=== PATIENT | female | born 1945 | race Caucasian/White ===

== ENCOUNTER 2017-11-14 13:02 | Outpatient (CLI) | payer MEDICARE, BC ==
[2017-11-14 14:03] LABS: #Eosinphils 0.1 thou/uL (0.0-0.7); #Lymphocytes 1.3 thou/uL (1.20-3.40); #Monocytes 0.5 thou/uL (0.11-0.59); %Basophils 0.4 % (0.0-1.0); %Eosinophils 1.9 % (0.0-10.0); %Lymphocytes 21.7 % (21.0-51.0); %Monocytes 8.3 % (0.0-10.0); %Neutrophils 67.7 % (42.0-75.0); Hemoglobin 13.4 g/dL (12.0-16.0); Mean Corpuscular HGB CONC 33.9 g/dL (32.0-36.0); Mean Corpuscular Hemoglobin 32.4 pg (27.0-31.0); Mean Corpuscular Volume 95.7 fL (78.0-98.0); Mean Platelet Volume 8.7 fL (7.4-10.4); Platelet Count 185 thou/uL (130-400); RBC Distribution Width 12.2 % (11.5-14.5); Red Blood Cell (RBC) Count 4.13 mill/uL (4.20-5.40)
[2017-11-14 14:09] LABS: INR-International Normal Ratio 1.3; PTT 28.3 SEC (22.9-36.1); Prothrombin Time 15.9 SEC (12.0-14.7)
[2017-11-14 14:40] LABS: Anion Gap 11 mmol/L (10-20); BUN (Urea Nitrogen) 19 mg/dL (9.8-20.1); Calc. Creatinine Clearance 0 mL/min (70-130); Calcium 9.8 mg/dL (7.8-10.44); Carbon Dioxide 33 mmol/L (23-31); Chloride 100 mmol/L (98-107); Estimated GFR-MDRD 65; Glucose 129 mg/dL (83-110); Potassium 3.4 mmol/L (3.5-5.1); Sodium 141 mmol/L (136-145)
--- NOTE | 2017-11-15 08:56 | EKG ---
Test Reason : Blood Pressure : / mmHG Vent. Rate : 073 BPM Atrial Rate : 073 BPM P-R Int : 148 ms QRS Dur : 094 ms QT Int : 400 ms P-R-T Axes : 029 -21 000 degrees QTc Int : 440 ms Sinus rhythm with Premature supraventricular complexes Incomplete right bundle branch block Possible Anterior infarct (cited on or before 23-MAY-2014) Nonspecific ST abnormality Abnormal ECG When compared with ECG of 23-MAY-2014 22:47, Sinus rhythm has replaced Atrial fibrillation Vent. rate has decreased BY 36 BPM Questionable change in initial forces of Anteroseptal leads Nonspecific T wave abnormality no longer evident in Lateral leads QT has lengthened Confirmed by DR. Omar ROSADO ([id number]) on 11/15/2017 8:56:22 AM Referred By: MAMIE Confirmed By:DR. Omar ROSADO
== END 2017-11-14 13:03 | disposition home or self-care (01) ==
LOC: LABBT 13:02
PROVIDERS: ATTEND Internal Medicine Cardiovascular Disease
DX: Z01.818 Encounter for other preprocedural examination (principal); I48.91 Unspecified atrial fibrillation
CPT/HCPCS: 80048; 85025; 85610; 85730; 93005; 93010

== ENCOUNTER 2017-11-15 11:56 | Observation (INO) | payer MEDICARE, BC ==
[2017-11-15] MEDS ORDERED: Heparin 10,000 UNITS/1 ML VIAL ONE ×2 (14:02→17:05)
[2017-11-15] MEDS ORDERED: Fentanyl 100 MCG/2 ML VIAL ONE ×2 (14:49→17:53)
[2017-11-15] MEDS ORDERED: Heparin 5,000 UNITS/ML VIAL ONE (14:52)
[2017-11-15] MEDS ORDERED: PROPOFOL 200 MG/20 ML VIAL ONE (14:52)
[2017-11-15] MEDS ORDERED: Lidocaine 1% PF 5 ML VIAL ONE (14:52)
[2017-11-15] MEDS ORDERED: Heparin 10,000 UNITS/ 10 ML VIAL ONE (14:52)
[2017-11-15] MEDS ORDERED: Glycopyrrolate 0.2 MG/ML 5 ML SYRINGE ONE (14:52)
[2017-11-15] MEDS ORDERED: PHENYLEPHRINE-NS 100 MCG/ML 10 ML SYRINGE ONE ×2 (14:52→15:37)
[2017-11-15] MEDS ORDERED: Ondansetron HCl/PF 4 MG/2 ML Vial ONE (14:52)
[2017-11-15] MEDS ORDERED: Phenylephrine HCL 10 MG/ML VIAL ONE (15:38)
[2017-11-15] MEDS ORDERED: Protamine Sulfate 50 MG/5 ML VIAL ONE (17:09)
[2017-11-15] MEDS ORDERED: Promethazine HCl 25 MG/ML VIAL SLOW IVP PRN (17:47)
[2017-11-15] MEDS ORDERED: Ondansetron HCl/PF 4 MG/2 ML Vial IVP PRN (17:47)
[2017-11-15] MEDS ORDERED: Promethazine HCl 25 MG/ML VIAL IM PRN (17:47)
[2017-11-15] MEDS ORDERED: Furosemide 40 MG/4 ML VIAL ONE (18:42)
[2017-11-15 19:46] VITALS: BMI 35.6
[2017-11-15] MEDS ORDERED: Calcium Carbonate 500 MG ChewTAB PO PRN (20:18)
--- NOTE | 2017-11-15 22:51 | OP ---
DATE OF PROCEDURE 11/15/2017 ELECTROPHYSIOLOGY PROCEDURE PROCEDURE: 1. Comprehensive EP testing, a 3D mapping ablation of atrial fibrillation. 2. Transseptal catheterization x2. 3. Intracardiac echocardiography. 4. Venography. CLINICAL INDICATION: Paroxysmal drug refractory atrial fibrillation. SURFACE GRINDER: Pino Marley M.D. ASA CLASSIFICATION: 3. ANESTHESIA: General endotracheal anesthesia per Anesthesiology. ADDITIONAL CARDIAC MEDICATIONS: None. ESTIMATED BLOOD LOSS: Less than 10 mL TOTAL FLUOROSCOPY TIME: 4.5 minutes. TOTAL HEPARIN GIVEN: 15,000 units. TOTAL PROTAMINE GIVEN: 40 mg. ACUTE COMPLICATIONS: None apparent. METHODS: After informed consent was obtained, the patient was taken to the EP lab in fasting state. Both groins were prepped and draped using ultrasound guidance. The right and left femoral veins wer e accessed and wires were inserted into the central venous system. The wires were then used to place an 11 [place] Citizen and 8 [place] Citizen sheath in the left groin, two 8-[place] Citizen sheath in the right groin, the 11-F rench sheath at quite a bit of resistance during placement and had to be predilated before the short sheath could be placed. An echo probe was placed in left groin advanced up to the IVC. There was so me resistance and appeared to be a fluid filled space in the retroperitoneal area. There was no ricardo ge in blood pressure for the patient and this was watched for almost 30 minutes. The other wires wer e used to place a short 8-[place] Citizen sheath and a venography was performed. This showed evidence of a pa rtial compression of the left iliac artery and in the retroperitoneal space with a significant collat eral suggesting chronicity of this event. With fluoroscopic guidance and ultrasound guidance, the re maining iliac was cannulated and long sheaths were placed through this area along with on the right i liac up to the IVC. A circular ablation catheter was used from the right groin to create a geometry of the right atrium and the coronary sinus. A 20-pole catheter was placed in left groin, advanced u p to the coronary sinus, the proximal end was along the saran terminalis. The patient was then anti coagulated and transseptal catheterization was performed using fluoroscopic and ultrasound guidance a long with 3D mapping. A 3D map was obtained, the left atrium and ablation was delivered completely i solating all four pulmonary veins and posterior left atrium. Ablation was delivered completely isola ting the coronary sinus as this also had evidence of nonvenous triggers. At the conclusion of proced ure, catheters were removed. Heparin was reversed. Sheaths were pulled. Hemostasis was achieved wi th collagen closure. RESULTS: 1. Baseline intervals, HV interval 59 milliseconds. 2. Atrial function. The patient was in atrial fibrillation; however, this converted spontaneously, complete isolation was performed of all four pulmonary veins and the posterior wall of the left atriu m. 3. Ablation details a total of 26 minutes 45 seconds were delivered with a [employer] Harris open, ir rigated ablation catheter to isolate the pulmonary veins and the coronary sinus and the posterior wal l of the left atrium. IMPRESSION: 1. Successful PVAI with posterior wall and CS isolation. 2. Evidence of a fluid filled cavity in the retroperitoneal space appears to be chronic, but probabl y warrants workup. RECOMMENDATION: 1. Continue with oral anticoagulation as clinically appropriate. 2. 23-hour observation.
[2017-11-16] MEDS ORDERED: Iopamidol 370 76% 100 ML VIAL ONE (07:21)
[2017-11-16] MEDS ORDERED: Famotidine 20 MG TAB PO SCH (09:00)
[2017-11-16] MEDS ORDERED: Furosemide 20 MG TAB PO SCH (09:00)
[2017-11-16] MEDS ORDERED: Multivitamin W/ Minerals 1 TAB PO SCH (09:00)
[2017-11-16] MEDS ORDERED: Ezetimibe 10 MG TAB PO SCH (09:00)
[2017-11-16] MEDS ORDERED: Rivaroxaban 10 MG TAB PO SCH (09:00)
[2017-11-16] MEDS ORDERED: Nebivolol HCl 5 MG TAB PO SCH (09:00)
[2017-11-16] MEDS ORDERED: Lisinopril/Hydrochlorothiazide 20/25 mg Tablet PO SCH (09:00)
[2017-11-16] MEDS ORDERED: Rosuvastatin 20 MG TAB PO SCH (09:00)
[2017-11-16] MEDS ORDERED: Furosemide 40 MG TAB PO PRN (12:07)
--- NOTE | 2017-11-16 14:43 | CT ---
ABDOMEN AND PELVIC CT SCAN WITH IV CONTRAST: HISTORY: A 72-year-old female with a history of compression of the left iliac vein secondary to a pelvic mass. There is some minimal pleural effusion and some pleural-based parenchymal changes in the right lowe r chest. The left lung base is clear. Possible very small hiatal hernia. Status post cholecystecto my without significant intrahepatic ductal dilatation. The pancreas, spleen, and adrenal glands are unremarkable. No evidence of renal calculus or acute obstruction. Large somewhat septated cystic pelvis mass measuring approximately 8.3 x 13.7 x 23.9 cm, somewhat more prominent on the right side. The distal IVC is somewhat flattened. Additionally, the distal left iliac vein is minimally flatte suzanne, but there is no evidence for intraluminal thrombus. No evidence of venous occlusion. IMPRESSION: Large somewhat septated cystic pelvic and lower abdominal mass. This results in some compressive malissa nges on the distal inferior vena cava which is thinned at its origin as well as minimal thinning of t he left iliac vein as it crosses between the spine and the common iliac arteries, but no evidence for intraluminal thrombus or intraluminal clot or obstruction. POS: ARLIN
[2017-11-16 15:50] VITALS: BP 101/63; TEMP 98.8
--- NOTE | 2017-11-16 16:05 | EKG ---
Test Reason : Blood Pressure : / mmHG Vent. Rate : 073 BPM Atrial Rate : 073 BPM P-R Int : 138 ms QRS Dur : 090 ms QT Int : 434 ms P-R-T Axes : 049 -01 004 degrees QTc Int : 478 ms Normal sinus rhythm Normal ECG When compared with ECG of 14-NOV-2017 13:31, Premature supraventricular complexes are no longer Present Borderline criteria for Anterior infarct are no longer Present Confirmed by DR. Omar ROSADO ([id number]) on 11/16/2017 4:05:17 PM Referred By: MAMIE Confirmed By:DR. Omar ROSADO
[2017-11-16] MEDS ORDERED: Sucralfate 1 GM TAB PO SCH (17:00)
--- NOTE | 2017-11-16 17:06 | PDOC.EVN ---
Event Note - Event Note Event Note: Phone call to OBGYN from Dr Rivera: I received a call from Dr Rivera just now regarding this patient. She had a cardiac ablation for AFib and is now on Xarelto. She was found to have a 24cm incidential ovarian mass as part of this workup. Dr Rivera was called, who called me, to [facility] outpatient obgyn specialist follow up. She was found to have a 24cm septated cyctic pelvic mass on sono/CT. I will fax a referral to [facility] ([facility]). She has a HX of prior unilateral oophorectomy and hyst years ago. Patient not seen by POLICE BOOKING OFFICER. Phone call referral only.
--- NOTE | 2017-11-16 20:10 | CON ---
DATE OF CONSULTATION: 11/16/2017 CHIEF COMPLAINT: Large pelvic cyst. HISTORY OF PRESENT ILLNESS: This is a 72-year-old female who at age 28 had her right ovary and uteru s removed for what was described as a massive cyst. Yesterday, she had a cardiac ablation and during the ultrasound portion of this, the instrument lens grinder saw a cystic structure on ultrasound. A CT scan wa s obtained today showing a very large pelvic cyst, primarily on the left side causing some compressio n of the vena cava. The patient denies any abdominal pain. She denies leg swelling, but she says sh joaquin is on diuretics. She has not seen a perforator typist for over almost 30 years. PAST MEDICAL HISTORY: Significant for atrial fibrillation, recent ablation, and hypertension. PAST SURGICAL HISTORY: Had a hysterectomy, open cholecystectomy, lumpectomy, colonoscopy, right ankl e surgery, bilateral cataracts and the hysterectomy and cystectomy. MEDICATIONS: Include rosuvastatin, Xarelto, multivitamins, lisinopril, Lasix, Pepcid, Zetia, Bystoli c, Carafate, K-Dur, Protonix, and Lasix. ALLERGIES: She has allergies to VALIUM. SOCIAL HISTORY: Denies tobacco or alcohol use. PHYSICAL EXAMINATION: VITAL SIGNS: Temperature 98.8, pulse 92, blood pressure is 103/51. GENERAL: She is an obese female in no apparent distress. HEENT: Unremarkable. LUNGS: Clear. HEART: Regular rate and rhythm. ABDOMEN: Again, obese, but there is a large palpable mass that is nontender on the left pelvic area probably about 20 cm in diameter. EXTREMITIES: I do not see any significant pedal edema. LABORATORY AND X-RAY FINDINGS: White count 6, H&H 13 and 39, platelet count 185. Her PT is 15, INR 1.3. Her electrolytes, potassium 3.4, CO2 of 33, glucose 129. CT scan shows this 24 x 14 x 8 cm mul ti or septated cystic pelvic lower abdominal mass with compressive changes on the lower and inferior vena cava, but no thrombus. ASSESSMENT: Large pelvic cyst, likely ovarian. PLAN: The patient really needs evaluation by Gynecology as the size puts her at risk for this being an ovarian cancer.
--- NOTE | 2017-11-16 20:44 | DIS ---
DATE OF ADMISSION: 11/15/2017 DATE OF DISCHARGE: 11/16/2017 Dictated as scribe for Dr. Dc Vazquez. REASON FOR ADMISSION: Drug refractory persistent atrial fibrillation with ablation. ADMITTING PHYSICIAN: Pino Marley MD PROCEDURES PERFORMED: 1. Comprehensive EP testing, mapping, and ablation of atrial fibrillation as well as venography. A successful PVI with posterior wall and coronary sinus isolation as well as evidence of a fluid-filled cavity that was found in the retroperitoneal space, which appears to be chronic, but underwent addit ional imaging for workup. 2. CT of the abdomen and pelvis with contrast. COMPLICATIONS: None. HISTORY OF PRESENT ILLNESS: Ms. Gutierrez is a very pleasant 72-year-old woman with a history of drug re fractory persistent atrial fibrillation, who was admitted the day prior for an elective atrial fibril lation ablation. This was performed the day prior and she received a total of 26 minutes 45 seconds of RF energy delivered successfully terminating her atrial fibrillation. She has been maintaining si nus rhythm since the ablation and has had an uneventful postoperative recovery thus far. That being said, while gaining access, it was found that she had a large fluid-filled cavity in the retroperiton eal space. The morning after her procedure, a CT of the abdomen and pelvis with contrast was ordered , which revealed a 24-cm cystic ovarian mass. The patient has had a hysterectomy and right oophorect george at age 31, but the left ovary had remained in place to prevent early menopause. This was evaluat ed by CV Surgery and was then also referred to Gynecology. She has a followup appointment with Gynec ology for further evaluation and management of her cyst. Regarding her postoperative recovery, she is maintaining sinus rhythm. Her vital signs have been sta ble. She does not show any signs of congestive heart failure or fluid overload post-ablation. She h as been ambulatory, tolerating p.o. intake, and voiding normally. She does not have any chest pain o r dyspnea on exertion. She shows no signs of pericardial effusion or tamponade. The groin sites are stable and bilateral access points were closed with Vascade collagen closure devices. The patient i s stable and ready for discharge. DISCHARGE MEDICATIONS: We will continue her home medications with a few alteration. Discharge list includes Crestor 40 mg p.o. daily, Xarelto 20 mg p.o. daily, multivitamin p.o. daily, lisinopril/hydr ochlorothiazide 20-25 p.o. daily, Lasix 20 mg p.o. daily, Pepcid AC 10 mg daily, Zetia 10 mg daily, T ums as needed, Bystolic 10 mg daily, Carafate prescription 1 gram p.o. before meals and at bedtime x2 weeks, potassium chloride 20 mEq p.o. one tab p.r.n. if taking Lasix prescription, Protonix 40 mg p. o. daily x1 month prescription provided, and Lasix 40 mg p.o. p.r.n. increased shortness of breath or edema prescription provided. DISCHARGE INSTRUCTIONS: No lifting more than 25 pounds or soaking baths for 1 week's time. Then, sh e may resume activity gradually and as tolerated. She will follow up Clinic in [place] in 4-6 we eks and already has an appointment scheduled for this. She has continued taking her Xarelto without interruption, especially in postoperative recovery time. She did not have an extensive ablation and if she undergoes further workup for this ovarian cyst, she may need to interrupt her anticoagulation around 1 month's time, which has been discussed with Dr. Marley for more possible gynecologic surgery and management of the cyst. She will be mailed an event monitor in the near future to use in her po stoperative recovery and monitoring for recurrent atrial fibrillation. She is to stop her Multaq, wh ich we will consider re-initiating if early recurrence is seen. CONDITION ON DISCHARGE: Stable without postoperative complications, chronic ovarian cyst discovered and undergoing further evaluation by Gynecology in the near future. The patient has LOCOMOTIVE INSPECTOR appointment scheduled.
--- NOTE | 2017-11-16 22:57 | CON ---
DATE OF CONSULTATION: 11/16/2017 HISTORY OF PRESENT ILLNESS: Christy Gutierrez is a 72-year-old white female that I have followed since 11/11. At that time, she presented feeling her heart beat rapidly and denied any chest discomfort, humberto rtness of breath, orthopnea or PND. She had one previous episode, but did not seek medical attention in the summer of 2007. She had been on metoprolol extended release, but stopped that in the summer 2007 because her blood pressure was low. When she came in with atrial fibrillation, she was treated with intravenous Cardizem and converted to sinus rhythm. Two weeks later, she was admitted with recurrence of the atrial fibrillation. She was given intraven ous Cardizem. She converted to sinus rhythm and was placed on p.o. Cardizem in addition to metoprolo l. She underwent Cardiolite treadmill testing, exercised for 7 minutes. She had no chest pain or ST segment changes. Cardiolite revealed no evidence of ischemia. After that, she would continue to have intermittent short-lived episodes. She has complained of tire dness with the metoprolol and was switched to Bystolic for a period of time. However, she thought sh e had more episodes of atrial fibrillation with Bystolic. In 12/2011, she awoke with a feeling of her heart beating very rapidly came to the emergency room and was in atrial fibrillation with rate of 110-120. She was placed on Cardizem drip. She was placed o n Xarelto as well as Multaq. She converted to sinus rhythm. Since her admission, she has continued to be intermittently followed in the office. She would contin ue to have episodes of atrial fibrillation, sometimes lasting up to 24 hours. She was then seen on 0 10/05/2017. She was having more frequent episodes of atrial fibrillation, sometimes lasting over 7 da ys. She stated that the heart rate was never over 100. With increased episodes, she was referred to Electrophysiology. Yesterday, she underwent radiofrequency ablation. It was noted that there seeme d to be compression of the left iliac vein and abdominal CT has been performed. She denies having any abdominal pain, history of diverticulosis or diverticulitis, nausea, vomiting o r diarrhea. She does state that she had large ovarian cyst and underwent hysterectomy and right ooph orectomy; however, the left ovary remained. PAST MEDICAL HISTORY: Diabetes, hyperlipidemia, hypertension, atrial fibrillation, GERD, history of diastolic CHF. OPERATIONS: Hysterectomy, right oophorectomy, right ankle surgery, cataract surgery, cholecystectomy . MEDICATIONS: Tums 2 to 3 tablets b.i.d. p.r.n., Zetia 10 daily, Pepcid-AC 10 mg daily, furosemide 40 mg p.r.n., furosemide 20 mg daily, lisinopril/hydrochlorothiazide 20/25 q.a.m., Centrum Silver, Byst olic 10 mg daily, Protonix 40 daily, KCl 20 mEq q.a.m., Xarelto 20 mg daily, Crestor 40 daily, and Ca rafate 1 gram a.c. and at bedtime. ALLERGIES: VALIUM. SOCIAL HISTORY: She does not smoke. She occasionally drinks wine. She is a retired school nurse. FAMILY HISTORY: Father of myocardial infarction at age 57. Sister had a stroke at age 69. REVIEW OF SYSTEMS: Twelve-point review of systems otherwise unremarkable. PHYSICAL EXAMINATION: VITAL SIGNS: Blood pressure 103/51, pulse of 81, sinus rhythm on the monitor. HEENT: PERRL. NECK: Supple. LUNGS: Chest is clear. CARDIAC: S1 and S2 are normal, without any S3, S4 or murmurs. ABDOMEN: Normal bowel sounds, without tenderness. No definite masses were felt. EXTREMITIES: Revealed no clubbing, cyanosis or edema. NEUROLOGIC: Grossly intact. LABORATORY DATA: EKG reveals normal sinus rhythm with incomplete left bundle branch block. CBC is u nremarkable. Sodium 141, potassium 3.4, chloride 100, carbon dioxide 33, BUN 19, creatinine 0.86. A bdominal and pelvic CT revealed a large somewhat septated cystic pelvic and lower abdominal mass 8.3 x 13.7 x 23.9 cm somewhat more prominent on the right side. There are some compressions changes in d istal inferior vena cava as well as minimal pain in the left iliac vein. There is no evidence of int ramural thrombus or obstruction. IMPRESSION: 1. Large cystic abdominal - pelvic mass. 2. History of ovarian cyst with right oophorectomy in the past. 3. Paroxysmal atrial fibrillation, status post ablation yesterday. 4. Hypertension. 5. Diabetes. 6. Hyperlipidemia. 7. Moderate to severe mitral regurgitation. 8. History of right breast cancer. 9. Positive family history. PLAN: Surgical consultation will be obtained for further evaluation of this mass. I have been in co ntact with Dr. Marley and he felt that if it was critical that anticoagulation could be held now for further evaluation or operation. Otherwise, consideration should be given to continue anticoagulatio n for a month.
[2017-11-17] MEDS ORDERED: Potassium Chloride 20 MEQ TAB PO SCH ×2 (08:00→09:00)
== END 2017-11-16 17:43 | disposition home or self-care (01) ==
LOC: SDC 11:56 → 2SW 17:46 → SDC 20:58
PROVIDERS: ADMIT Internal Medicine Cardiovascular Disease; ATTEND Internal Medicine Cardiovascular Disease
PROC: 02583ZZ Destruction of Conduction Mechanism, Percutaneous Approach (ICD-10-PCS; principal; 2017-11-15)
PROC: 02K83ZZ Map Conduction Mechanism, Percutaneous Approach (ICD-10-PCS; 2017-11-15)
PROC: B246ZZZ Ultrasonography of Right and Left Heart (ICD-10-PCS; 2017-11-15)
DX: I48.0 Paroxysmal atrial fibrillation (principal); I11.0 Hypertensive heart disease with heart failure; I50.30 Unspecified diastolic (congestive) heart failure; I34.0 Nonrheumatic mitral (valve) insufficiency; E11.9 Type 2 diabetes mellitus without complications; E78.5 Hyperlipidemia, unspecified; K21.9 Gastro-esophageal reflux disease without esophagitis; R19.00 Intra-abdominal and pelvic swelling, mass and lump, unspecified site; Z79.02 Long term (current) use of antithrombotics/antiplatelets; Z79.899 Other long term (current) drug therapy; Z88.8 Allergy status to other drugs, medicaments and biological substances; Z85.3 Personal history of malignant neoplasm of breast
CPT/HCPCS: 36005; 74177; 75820; 76942; 85347 ×2; 93005; 93613; 93622; 93656; 93662; 94760; 96374; C1731; C1732 ×3; C1759; C1769; G0378; J1644; J1940; J2001; J2370; J2405; J2704; J2720; J3010

== ENCOUNTER 2017-11-28 13:46 | Outpatient (CLI) | payer MEDICARE, BC | END 2017-11-28 13:47 | disposition home or self-care (01) | LOC: BICMAMMO 13:46 | PROVIDERS: ATTEND Internal Medicine Hematology & Oncology | DX: Z08 Encounter for follow-up examination after completed treatment for malignant neoplasm (principal); R92.2 Inconclusive mammogram; R92.1 Mammographic calcification found on diagnostic imaging of breast; Z85.3 Personal history of malignant neoplasm of breast; Z85.828 Personal history of other malignant neoplasm of skin | CPT/HCPCS: 76642; 77066; G0279 ==

== ENCOUNTER 2018-01-03 14:31 | Outpatient (CLI) | payer MEDICARE, BC ==
[2018-01-03 15:57] LABS: Hemoglobin 12.8 g/dL (12.0-16.0); Mean Corpuscular Hemoglobin 31.1 pg (27.0-31.0); Mean Corpuscular Volume 94.5 fL (78.0-98.0); Mean Platelet Volume 8.2 fL (7.4-10.4); Platelet Count 195 thou/uL (130-400); RBC Distribution Width 12.1 % (11.5-14.5); Red Blood Cell (RBC) Count 4.12 mill/uL (4.20-5.40)
[2018-01-03 16:18] LABS: Anion Gap 9 mmol/L (10-20); BUN (Urea Nitrogen) 16 mg/dL (9.8-20.1); Calc. Creatinine Clearance 0 mL/min (70-130); Calcium 10.2 mg/dL (7.8-10.44); Carbon Dioxide 33 mmol/L (23-31); Chloride 100 mmol/L (98-107); Estimated GFR-MDRD 60; Glucose 114 mg/dL (83-110); Potassium 3.4 mmol/L (3.5-5.1); Sodium 139 mmol/L (136-145)
== END 2018-01-03 14:32 | disposition home or self-care (01) ==
LOC: LABBT 14:31
PROVIDERS: ATTEND Obstetrics & Gynecology
DX: Z01.812 Encounter for preprocedural laboratory examination (principal); N83.209 Unspecified ovarian cyst, unspecified side
CPT/HCPCS: 80048; 85027; 86850; 86900; 86901

== ENCOUNTER 2018-01-07 06:55 | Inpatient (IN) | payer MEDICARE, BC ==
[2018-01-03 14:54] VITALS: BMI 36.6
--- NOTE | 2018-01-03 23:11 | HP ---
She is scheduled for surgery on 01/07/2018. HISTORY OF PRESENT ILLNESS: Ms. Gutierrez is a 72-year-old white female with prior hysterectomy and yonny lidya of the right ovary many years ago, who had undergone a recent cardiac ablation procedure for clinical program consultant brian atrial fibrillation. During the procedure, the plastics spreading machine operator noted difficulty with passing of fem oral vein catheter and therefore afterwards a CT scan was obtained. A very large 23.9 x 13.7 x 8.3 c m cystic pelvic mass with some septation were seen most likely from her remnant ovary. There was no ascites, no omental caking, and no adenopathy seen. Patient has noted increasing abdominal girth and also early satiety and some constipation. PAST MEDICAL HISTORY: As noted, chronic hypertension, atrial fibrillation, status post successful ab lation, also history of stage I estrogen receptor positive breast cancer in [address] Taina Hill. PAST SURGICAL HISTORY: Noted hysterectomy and oophorectomy in her 30s and lumpectomy right breast, o pen cholecystectomy, ankle surgery, bilateral cataracts replacements and as noted recent cardiac abla tion procedure. ALLERGIES: She has no known drug allergies. CURRENT MEDICATIONS: Bystolic 10 mg daily, ezetimibe 10 mg daily, furosemide 20 mg daily, lisinopril /hydrochlorothiazide 20/25 mg tablet daily, metformin 500 mg b.i.d., Protonix 40 mg daily, potassium chloride ER 20 mEq daily, rosuvastatin 40 mg tablet daily, sucralfate 1 gram tablet daily, and Xarelt o 20 mg daily. Patient is discontinuing the Xarelto 72 hours prior to surgery. FAMILY HISTORY: Noncontributory. PHYSICAL EXAMINATION: VITAL SIGNS: Patient's height is 5 feet 2 inches, weight 200 pounds. BMI 36.6, blood pressure 114/7 2, pulse is 78 and regular, respiratory rate 18, O2 saturation 98%. GENERAL: She is well-developed, well-nourished, white female, slightly obese. NECK: Supple, no thyromegaly, JVD, or masses noted. CHEST: Clear to auscultation. HEART: Regular rate and rhythm. S1, S2 heart sounds were no murmurs, rubs, or gallops. ABDOMEN: Soft, it is distended with a large pelvic mass appears to be 4 to 5 cm above the umbilicus, it is nontender. PELVIC: Vulva and vagina had no lesions. Vaginal cuff intact. Cervix was surgically absent. Uteru s surgically absent, palpable 24-week size pelvic mass. Additional lab for the adnexal mass showed a normal CA-125 level of 25.8. ASSESSMENT: This is a 72-year-old white female, prior hysterectomy, oophorectomy with 24 cm cystic a dnexal mass with minimal septations. Normal CA-125 level of 25. Patient has had a history of chroni c atrial fibrillation with such successful cardiac ablation procedure and now is in normal sinus rhyt hm. She has had cardiac clearance with her plastics spreading machine operator, Dr. Branch with a normal myocardial perfu paulie study recently with an ejection fraction of 61%. She also has history of stage I, estrogen rece ptor positive breast cancer and is currently without evidence of disease recurrence. PLAN: To proceed with exploratory laparotomy with removal of the remaining adnexal cyst. She is to discontinue the Xarelto 72 hours prior to surgery. Risks and benefits of procedure discussed in belem rodriguez. She is set for surgery on 01/07/2018.
[2018-01-07] MEDS ORDERED: CEFAZOLIN 2 GM/50 ML BAG ONE (07:45)
[2018-01-07] MEDS ORDERED: Ropivacaine HCl/PF 750 ML in Premix Bag 1 BAG NERVE BLCK SCH (07:45)
[2018-01-07] MEDS ORDERED: Fentanyl 250 MCG/5 ML VIAL ONE (08:43)
[2018-01-07] MEDS ORDERED: Bupivacaine PF 0.5% 30 ML VIAL ONE (09:17)
[2018-01-07] MEDS ORDERED: Promethazine HCl 25 MG/ML VIAL IM PRN (10:09)
[2018-01-07] MEDS ORDERED: Promethazine HCl 25 MG/ML VIAL SLOW IVP PRN (10:09)
[2018-01-07] MEDS ORDERED: Ondansetron HCl/PF 4 MG/2 ML Vial IVP PRN (10:09)
[2018-01-07] MEDS ORDERED: Fentanyl 100 MCG/2 ML VIAL ONE (10:17)
[2018-01-07] MEDS ORDERED: Promethazine HCl 25 MG/ML VIAL ONE (11:04)
--- NOTE | 2018-01-07 12:14 | OP ---
DATE OF PROCEDURE: 01/07/2018 PREOPERATIVE DIAGNOSES: This is a 72-year-old white female with history of previous hysterectomy and RSO with large 24 cm left adnexal cyst. POSTOPERATIVE DIAGNOSES: This is a 72-year-old white female with history of previous hysterectomy an d RSO with large 24 cm left adnexal cyst. PROCEDURE PERFORMED: Exploratory laparotomy with left salpingo-oophorectomy. SURGEON: Ally Pascual M.D. OPTICAL DESIGN ENGINEER: Ricardo Beckett D.O. ANESTHESIA: General endotracheal. ESTIMATED BLOOD LOSS: Less than 50 mL. COMPLICATIONS: None. COUNTS: Correct x2. ANTIBIOTICS: Two grams Ancef pumping station engineer to the OR. FINDINGS: 1. Very large bilobed cystic adnexal mass approximately 24 x 20 cm with smooth capsule noted. 2. Normal appearing omental surfaces and peritoneal cavity of the abdomen with normal appearing alexx l and colon. DISPOSITION: To the recovery room stable. DESCRIPTION OF OPERATIVE PROCEDURE: The patient previously received informed consent in regards to tanisha butler. She is taken back to the operating room where she received a general endotracheal anesthetic agent without complications. She was placed in supine position and prepped and draped in usual ster ile fashion. A Aguilar catheter was placed. A vertical midline incision was made in the abdomen. Thi s was carried around to the left side of the umbilicus back towards the midline to accommodate room f or removal of the large cystic structure. This fascia was nicked in the midline. Fascial incision w as extended superiorly and inferiorly. The rectus muscle bellies were divided in midline. The perit mills cavity was entered. Cytologic peritoneal washings were then obtained at this time. The incisi on was then extended to allow for removal of the large cyst which was edged out intact. The pedicle base of the adnexal mass was identified and the ureter was palpated to be well below the anticipated excision site. Two Meka clamps were placed overlapping underneath the large cyst. Fraser scissors w ere then utilized to cut the pedicle distal to this and the cyst remained intact. A Florinef tie on the most distal clamp was placed securing the pedicle and the clamp was removed and then a free tie o f 0 Vicryl was placed under the most proximal clamp and this was cinched down, an additional Florinef suture was then placed securing the pedicle site with hemostasis being confirmed. The pelvis again was irrigated and suctioned. The peritoneal cavity was then explored with the previously mentioned f indings. The edges of the peritoneum were then reapproximated with a running 0 Vicryl suture. The u pper edge of the fascia was then grasped with Sol clamps in a double looped #1 PDS suture was then initiated the closure of the superior fascial edge. Several throws were placed and then the ON-Q pu mp double lumen catheters were placed with the trocars sleeves passing under the fascia down to the i nferior edge of the subfascial region of the incision. The fascia was then continued to close the ed ges down to the inferior edge and the fascial suture was tied. The catheters of the ON-Q pump were t hen passed through the catheter sleeves and these were then removed intact. The subcutaneous tissue was then closed with 3-0 plain gut suture, and then tiki were utilized for skin closure. Hemostas is was confirmed. The catheters for the ropivacaine On-Q pump were then flushed with Marcaine. The patient was awakened from anesthesia and transferred to the recovery room in stable condition.
[2018-01-07] MEDS ORDERED: traMADol HCl 50 MG TAB PO PRN (13:17)
[2018-01-07] MEDS ORDERED: Bisacodyl 10 MG SUPP PR PRN (13:17)
[2018-01-07] MEDS ORDERED: Zolpidem Tartrate 5 MG TAB PO PRN (13:17)
[2018-01-07] MEDS ORDERED: diphenhydrAMINE 25 MG CAP PO PRN (13:17)
[2018-01-07] MEDS ORDERED: Simethicone Chewable 80 MG TAB PO PRN (13:17)
[2018-01-07] MEDS ORDERED: Acetaminophen 325 MG TAB PO PRN (13:17)
[2018-01-07] MEDS: Lactated Ringer's 1,000 ML IV SCH ×3 (14:45→23:19)
[2018-01-07] MEDS ORDERED: Dexamethasone 20 MG/5 ML VIAL ONE (17:16)
[2018-01-07] MEDS ORDERED: Ondansetron PF 4 MG/2 ML Vial ONE (17:16)
[2018-01-07] MEDS ORDERED: PROPOFOL 200 MG/20 ML VIAL ONE (17:16)
[2018-01-07] MEDS ORDERED: Glycopyrrolate 0.2 MG/ML 5 ML SYRINGE ONE (17:16)
[2018-01-07] MEDS ORDERED: Lidocaine 1% PF 5 ML VIAL ONE (17:16)
[2018-01-07] MEDS: Dronedarone HCl 400 MG TAB PO SCH (17:39)
[2018-01-07] MEDS: Ketorolac Tromethamine 30 MG/ML VIAL IVP SCH ×2 (17:49→23:18)
[2018-01-07] MEDS: Furosemide 20 MG TAB PO SCH (17:49)
[2018-01-07] MEDS: Ibuprofen 800 MG TAB PO SCH (18:10)
[2018-01-07] MEDS ORDERED: Ketorolac Tromethamine 30 MG/ML VIAL ONE (20:42)
[2018-01-07] MEDS: Rosuvastatin 20 MG TAB PO SCH (21:10)
[2018-01-08 05:42] LABS: Hemoglobin 10.2 g/dL (12.0-16.0); Mean Corpuscular HGB CONC 32.3 g/dL (32.0-36.0); Mean Corpuscular Hemoglobin 30.6 pg (27.0-31.0); Mean Corpuscular Volume 94.5 fL (78.0-98.0); Mean Platelet Volume 8.3 fL (7.4-10.4); Platelet Count 151 thou/uL (130-400); RBC Distribution Width 12.1 % (11.5-14.5); Red Blood Cell (RBC) Count 3.35 mill/uL (4.20-5.40); White Blood Cell (WBC) Count 10.7 thou/uL (4.8-10.8)
[2018-01-08] MEDS: Ketorolac Tromethamine 30 MG/ML VIAL IVP SCH ×3 (06:09→18:17)
[2018-01-08] MEDS ORDERED: Furosemide 20 MG TAB PO SCH (09:00)
[2018-01-08] MEDS: Rivaroxaban 10 MG TAB PO SCH (09:56)
[2018-01-08] MEDS: Ezetimibe 10 MG TAB PO SCH (09:56)
[2018-01-08] MEDS: Nebivolol HCl 5 MG TAB PO SCH ×2 (09:56→11:38)
[2018-01-08] MEDS: Ibuprofen 800 MG TAB PO SCH ×3 (09:57→21:44)
[2018-01-08] MEDS: Lisinopril/Hydrochlorothiazide 20/25 mg Tablet PO SCH (09:57)
[2018-01-08] MEDS: Dronedarone HCl 400 MG TAB PO SCH ×2 (11:38→18:16)
[2018-01-08] MEDS: Lactated Ringer's 1,000 ML IV SCH ×2 (11:40→21:22)
[2018-01-08] MEDS: traMADol HCl 50 MG TAB PO PRN ×2 (14:37→20:07)
[2018-01-08] MEDS ORDERED: Baclofen 10 MG TAB PO PRN (17:02)
[2018-01-08] MEDS ORDERED: Baclofen 10 MG TAB PO SCH (17:15)
[2018-01-08] MEDS: Furosemide 20 MG TAB PO SCH (21:44)
[2018-01-08] MEDS: Rosuvastatin 20 MG TAB PO SCH (22:21)
[2018-01-09] MEDS: Ketorolac Tromethamine 30 MG/ML VIAL IVP SCH (00:31)
[2018-01-09] MEDS: Lactated Ringer's 1,000 ML IV SCH (03:39)
[2018-01-09 07:32] VITALS: BP 155/91; TEMP 98.6
[2018-01-09] MEDS: Dronedarone HCl 400 MG TAB PO SCH (08:34)
[2018-01-09] MEDS: Ezetimibe 10 MG TAB PO SCH (08:34)
[2018-01-09] MEDS: Lisinopril/Hydrochlorothiazide 20/25 mg Tablet PO SCH (08:34)
[2018-01-09] MEDS: Rivaroxaban 10 MG TAB PO SCH (08:35)
[2018-01-09] MEDS: Nebivolol HCl 5 MG TAB PO SCH (08:35)
[2018-01-09] MEDS ORDERED: Ibuprofen 800 MG TAB PO SCH (09:00)
--- NOTE | 2018-01-09 12:20 | DIS ---
DATE OF ADMISSION: 01/07/2018 DATE OF DISCHARGE: 01/09/2018 DIAGNOSES: 1. 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 2. History of chronic hypertension and atrial fibrillation with ablation. 3. Also, history of estrogen receptor positive breast cancer, currently without evidence of disease SUMMARY OF HOSPITAL COURSE: The patient is a 72-year-old white female who was found to have a large pelvic mass after undergoing a cardiac ablation in her pelvis. This was found to be a large 24 cm le ft adnexal mass. She underwent exploratory laparotomy with left salpingo-oophorectomy on 01/07/2018. Pathology confirmed this to be a benign mucinous cystadenoma of the left ovary. She has had a prev ious hysterectomy and RSO in the past. Postoperatively, the patient has done well. Her vital signs have remained stable. Hematocrit was 31.6% postop day #1. She was ambulating and voiding without di fficulty and tolerating diet on postop day #1. 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 On the morning of postop day #2, she is doing well and was ready to go home. Her v ital signs are stable, tolerating diet, voiding and ambulating without difficulty. She has a followu p postop day 10 for staple removal and incision check in 6 weeks postop. She has resumed her Xarelto on postop day #1 for her atrial fibrillation prophylaxis and her other maintenance meds for blood pr essure control.
== END 2018-01-09 10:14 | disposition home or self-care (01) | DRG 743 ==
LOC: SDC 06:55 → 3SE 10:04
PROVIDERS: ADMIT Obstetrics & Gynecology; ATTEND Obstetrics & Gynecology
PROC: 0UT60ZZ Resection of Left Fallopian Tube, Open Approach (ICD-10-PCS; principal; 2018-01-07)
PROC: 0UT10ZZ Resection of Left Ovary, Open Approach (ICD-10-PCS; 2018-01-07)
DX: N83.202 Unspecified ovarian cyst, left side (principal); I10 Essential (primary) hypertension; I48.91 Unspecified atrial fibrillation; Z79.01 Long term (current) use of anticoagulants; Z85.3 Personal history of malignant neoplasm of breast; Z90.710 Acquired absence of both cervix and uterus
CPT/HCPCS: 36415; 85027; 87070; 87205; 88112; 88307; J1100; J1885; J2001; J2405; J2550; J2704; J2795; J3010; S0020

== ENCOUNTER 2018-06-24 00:09 | Outpatient (CLI) | payer MEDICARE, BC ==
[2018-06-24 15:55] LABS: Hemoglobin 13.2 g/dL (12.0-16.0); Mean Corpuscular HGB CONC 32.8 g/dL (32.0-36.0); Mean Corpuscular Hemoglobin 31.1 pg (27.0-31.0); Mean Corpuscular Volume 94.8 fL (78.0-98.0); Mean Platelet Volume 8.8 fL (7.4-10.4); Platelet Count 187 thou/uL (130-400); RBC Distribution Width 12.4 % (11.5-14.5); Red Blood Cell (RBC) Count 4.23 mill/uL (4.20-5.40); White Blood Cell (WBC) Count 8.4 thou/uL (4.8-10.8)
[2018-06-24 16:05] LABS: INR-International Normal Ratio 1.3; PTT 26.3 SEC (22.9-36.1); Prothrombin Time 16.1 SEC (12.0-14.7)
[2018-06-24 16:14] LABS: Anion Gap 12 mmol/L (10-20); BUN (Urea Nitrogen) 23 mg/dL (9.8-20.1); Calc. Creatinine Clearance 0 mL/min (70-130); Carbon Dioxide 34 mmol/L (23-31); Chloride 98 mmol/L (98-107); Estimated GFR-MDRD 55; Glucose 99 mg/dL (83-110); Potassium 3.3 mmol/L (3.5-5.1); Sodium 141 mmol/L (136-145)
== END 2018-06-24 00:10 | disposition home or self-care (01) ==
LOC: LABBT 00:09
PROVIDERS: ATTEND Specialist
DX: Z01.818 Encounter for other preprocedural examination (principal); I48.91 Unspecified atrial fibrillation
CPT/HCPCS: 80048; 85027; 85610; 85730; 93005; 93010

== ENCOUNTER 2018-06-25 08:59 | Observation (INO) | payer MEDICARE, BC ==
[2018-06-24 14:58] VITALS: BMI 34.7
[2018-06-25] MEDS ORDERED: Heparin 10,000 UNITS/1 ML VIAL ONE ×2 (09:05→12:20)
[2018-06-25] MEDS ORDERED: Fentanyl 100 MCG/2 ML VIAL ONE (11:42)
[2018-06-25] MEDS ORDERED: Isoproterenol 0.2 MG/1 ML AMP ONE (12:32)
[2018-06-25] MEDS ORDERED: Protamine Sulfate 50 MG/5 ML VIAL ONE ×2 (13:10→13:27)
[2018-06-25] MEDS ORDERED: Promethazine HCl 25 MG/ML VIAL SLOW IVP PRN (13:33)
[2018-06-25] MEDS ORDERED: Meperidine HCl/PF 25 MG/ML VIAL SLOW IVP PRN (13:33)
[2018-06-25] MEDS ORDERED: Promethazine HCl 25 MG/ML VIAL IM PRN (13:33)
[2018-06-25] MEDS ORDERED: Rocuronium Bromide 10 MG/ML (10ML VIAL) ONE (13:57)
[2018-06-25] MEDS ORDERED: Lidocaine 1% PF 5 ML VIAL ONE (13:57)
[2018-06-25] MEDS ORDERED: PROPOFOL 200 MG/20 ML VIAL ONE (13:57)
[2018-06-25] MEDS ORDERED: Glycopyrrolate 0.2 MG/ML 5 ML SYRINGE ONE (13:57)
[2018-06-25] MEDS ORDERED: diphenhydrAMINE 50 MG/ML VIAL ONE (13:57)
[2018-06-25] MEDS ORDERED: Calcium Carbonate 500 MG ChewTAB PO PRN (14:13)
[2018-06-25] MEDS ORDERED: Rivaroxaban 10 MG TAB PO SCH (17:00)
[2018-06-25] MEDS: Dronedarone HCl 400 MG TAB PO SCH (18:24)
--- NOTE | 2018-06-25 20:03 | OP ---
DATE OF PROCEDURE: 06/25/2018 PROCEDURE: Ablation for atrial fibrillation. PREOPERATIVE DIAGNOSIS: Atrial fibrillation. DESCRIPTION OF PROCEDURE: The patient came to the EP lab in the postobstructive state. Informed consent was obtained. A time-out was called. The patient was sedated by member of the anesthesia staff. Once the patient was adequately sedated, the right and left femoral regions were prepped and draped in the usual sterile fashion as well as the right internal jugular area. Using a modified Seldinger technique with ultrasound-guided access, access was obtained x2 in the right femoral vein, x1 in the left femoral vein, x1 in the right internal jugular vein. A 20-pole Duo-Deca catheter was advanced in the right internal jugular vein and placed with distal 10 poles in the coronary sinus for left atrial pacing and recording, proximal 10 poles were along the saran terminalis area. Through a 10-Nauruan sheath placed in the left femoral vein, an intracardiac echo catheter was advanced and placed in the right atrium for intraprocedural monitoring and guidance. Heparin bolus was given and 2 transseptal punctures were obtained after changing the short sheath to an SL0 and a LA multipurpose. A 20-mm 10-pole circular mapping catheter was placed in the left atrium as was an STSF J-curved catheter. A 3D electroanatomical map was made. Initially, the patient was in normal sinus rhythm, however, converted to atypical atrial flutter. The map appeared to show atrial flutter closest to the area of the nancy, this was ablated successfully. The pulmonary veins were isolated from the previous procedure with the exception of a right inferior pulmonary vein, which had some recurrence and required further isolation along the posterior aspect. Posterior wall also had some recovery along the esophageal area, these were ablated. The coronary sinus appears to have been ablated in the previous procedure. The left atrial appendage area was targeted for ablation resulting in significant delay of left atrial appendage, but no isolation. Isoproterenol bolus did not demonstrate any other extrapulmonary vein triggers. A total of 26 minutes of radiofrequency ablation were delivered. The patient's pacing was performed in the CS, left atrium as well as the left ventricle. His recording was obtained, and His-V interval was 41 milliseconds. Catheters were ultimately removed. Protamine was given. Sheaths were removed, and hemostasis was obtained in the groin by placement of a Vascade sheath. The right internal jugular access was removed, and hemostasis was obtained with manual pressure. The patient tolerated the procedure well and was discharged from the EP lab in stable condition. PROCEDURES PERFORMED: 3D electroanatomical mapping, ablation for atrial fibrillation and atrial flutter, successful re-isolation of pulmonary vein, successful ablation of atypical atrial flutter, successful re-isolation of posterior wall, successful ablation and delay of left atrial appendage. RECOMMENDATIONS: The patient will be at bedrest. The patient will follow up with Electrophysiology in 6 to 8 weeks. She will continue antiarrhythmic drugs until otherwise instructed. She will continue oral anticoagulant therapy until otherwise instructed. POSTOPERATIVE DIAGNOSIS: Atrial fibrillation, status post radiofrequency ablation. Job ID: [id number]
[2018-06-25] MEDS ORDERED: Famotidine 20 MG TAB PO SCH (21:00)
[2018-06-25] MEDS ORDERED: Rosuvastatin 20 MG TAB PO SCH (21:00)
[2018-06-25] MEDS ORDERED: Furosemide 20 MG TAB PO SCH (21:00)
[2018-06-26 07:33] VITALS: BP 130/83; TEMP 97.7
[2018-06-26] MEDS ORDERED: Potassium Chloride 20 MEQ TAB PO PRN (07:46)
[2018-06-26] MEDS ORDERED: Furosemide 40 MG TAB PO PRN (07:48)
[2018-06-26] MEDS: Dronedarone HCl 400 MG TAB PO SCH (08:05)
[2018-06-26] MEDS ORDERED: Multivitamin W/ Minerals 1 TAB PO SCH (09:00)
[2018-06-26] MEDS ORDERED: Ezetimibe 10 MG TAB PO SCH (09:00)
[2018-06-26] MEDS ORDERED: Nebivolol HCl 5 MG TAB PO SCH (09:00)
[2018-06-26] MEDS ORDERED: Lisinopril/Hydrochlorothiazide 20/25 mg Tablet PO SCH (09:00)
--- NOTE | 2018-06-26 10:51 | DIS ---
DATE OF ADMISSION: 06/25/2018 DATE OF DISCHARGE: 06/26/2018 ADMITTING DIAGNOSIS: Atrial fibrillation. PROCEDURES PERFORMED: Include electrophysiology study and radiofrequency ablation for atrial fibrillation. OPERATING PROVIDER: Sola Hernandez MD HISTORY OF PRESENT ILLNESS: Ms. Gutierrez is a pleasant 72-year-old woman known to our practice for history of persistent atrial fibrillation, who had late recurrent atrial arrhythmia and required redo ablation. She was admitted to observation on 06/25/2018 for an elective outpatient EP study and ablation procedure performed by Dr. Hernandez. During that ablation, she required re-isolation of new right inferior pulmonary vein. There is an atrial flutter closest to the area of the nancy that was also successfully ablated. The posterior wall had some recovery area along the esophageal area requiring ablation as well. The left atrial appendage was targeted for ablation resulted in significant delay, but no isolation. According to the operating report, no further recurrences were seen. The patient may require left atrial appendage isolation. The patient tolerated the procedure well and was transferred out of the EP lab in stable condition. SUBJECTIVE: Ms. Gutierrez is feeling well this morning. She denies any heart racing, palpitations, chest pain, pressure, syncope, near syncope, stroke, or stroke-like symptoms, urinary retention, nausea, vomiting, diarrhea, or bleeding dyscrasias. Groin sites in either side have not had any bleeding complications overnight. She feels well and is eager to go home. REVIEW OF SYSTEMS: An 8-point review of systems was conducted, negative except that was stated above in the HPI. OBJECTIVE: VITAL SIGNS: Temperature 97.7, pulse 75, blood pressure 130/83, oxygen is 95% on room air, respirations are 18. GENERAL: The patient is alert, oriented. Speech is clear. Affect is appropriate. NECK: Supple without jugular venous distention. HEART: Rate is regularly regular with a crisp S1, S2. She maintained sinus rhythm over the night with occasional PAC. ABDOMEN: Soft and nontender. Hepatojugular reflux is negative. LUNGS: Clear to auscultation bilaterally. EXTREMITIES: Warm and dry to touch without clubbing, cyanosis or edema. NEUROLOGIC: Grossly intact and nonfocal. DATABASE: Telemetry, normal sinus rhythm with occasional PACs. DISCHARGE MEDICATIONS: Resuming home medications of; 1. Crestor q.h.s. 2. Xarelto 20 mg daily. 3. Bystolic 10 mg daily. 4. Multivitamin daily. 5. Lisinopril-hydrochlorothiazide one tablet q.a.m. 6. Lasix 20 mg daily. 7. Zetia 10 mg daily. 8. Multaq 400 mg b.i.d. 9. Tums as needed. New prescriptions provided for; 1. Sucralfate 1 g p.o. q.i.d. x2 weeks. 2. Pantoprazole 40 mg daily. 3. Furosemide 40 mg p.o. p.r.n. shortness of breath in addition to potassium chloride 20 mEq p.o. p.r.n. to be taken with Lasix. DISCHARGE INSTRUCTIONS: No soaking baths for 7 days. No driving for 2 days. No lifting more than 10 pounds for 7 days. Light activity for 1 week and resume gradually and as tolerated. Do not miss any doses of Xarelto. Follow up in 6 weeks as requested. Contact [facility] with any postablation concerns or questions. CONDITION AT DISCHARGE: Stable. Job ID: [id number]
[2018-06-26] MEDS ORDERED: Sucralfate 1 GM TAB PO SCH (11:30)
== END 2018-06-26 08:59 | disposition home or self-care (01) ==
LOC: CCL 08:59 → 2SW 16:25
PROVIDERS: ADMIT Specialist; ATTEND Specialist
PROC: 02583ZZ Destruction of Conduction Mechanism, Percutaneous Approach (ICD-10-PCS; principal; 2018-06-25)
PROC: 02K83ZZ Map Conduction Mechanism, Percutaneous Approach (ICD-10-PCS; 2018-06-25)
PROC: 4A023FZ Measurement of Cardiac Rhythm, Percutaneous Approach (ICD-10-PCS; 2018-06-25)
PROC: 4A0234Z Measurement of Cardiac Electrical Activity, Percutaneous Approach (ICD-10-PCS; 2018-06-25)
DX: I48.0 Paroxysmal atrial fibrillation (principal); I48.4 Atypical atrial flutter; I51.89 Other ill-defined heart diseases; I34.0 Nonrheumatic mitral (valve) insufficiency; Z79.01 Long term (current) use of anticoagulants; Z79.899 Other long term (current) drug therapy; Z88.8 Allergy status to other drugs, medicaments and biological substances; Z98.890 Other specified postprocedural states
CPT/HCPCS: 76942; 85347 ×2; 93005 ×2; 93613; 93656; 93662; C1731; C1759; C1769; G0378; 93010; J1200; J1644; J2001; J2704; J2720; J3010

== ENCOUNTER 2018-12-09 09:03 | Outpatient (CLI) | payer MEDICARE, BC ==
--- NOTE | 2018-12-09 10:19 | MMO ---
Bilateral MAMMO Bilat Diag [facility]. CLINICAL HISTORY: Patient is 73 years old and is seen for diagnostic exam. The patient has no family history of breast cancer. The patient has a history of lumpectomy procedure revealed invasive ductal right breast carcinoma in August,; Ultrasound guided core biopsy procedure revealed invasive mammary carcinoma with lobular and ductal features. in the right breast in Jul, 2014 and Skin cancer. The patient has a history of right Ultrasound Guided Core Biopsy in Jul, 2014. VIEWS: The views performed were: bilateral craniocaudal with tomosynthesis; bilateral mediolateral oblique with tomosynthesis; and bilateral mediolateral with tomosynthesis. FILMS COMPARED: The present examination has been compared to prior imaging studies performed at [facility] on 07/23/2014, 11/22/2015, 11/23/2016 and 11/28/2017. This study has been interpreted with the assistance of computer-aided detection. MAMMOGRAM FINDINGS: The breasts are heterogeneously dense, which could obscure a lesion on mammography. There are benign appearing calcifications seen in both breasts. There are no suspicious masses, suspicious calcifications, or new areas of architectural distortion. IMPRESSION: THERE IS NO MAMMOGRAPHIC EVIDENCE OF MALIGNANCY. THE PATIENT WAS INFORMED OF THE EXAM RESULTS. A ROUTINE FOLLOW-UP MAMMOGRAM IN 1 YEAR IS RECOMMENDED. THE RESULTS OF THIS EXAM WERE SENT TO THE PATIENT. ACR BI-RADS Category 2 - Benign finding MAMMOGRAPHY NOTE: 1. A negative mammogram report should not delay a biopsy if a dominant of clinically suspicious mass is present. 2. Approximately 10% to 15% of breast cancers are not detected by mammography. 3. Adenosis and dense breasts may obscure an underlying neoplasm. Reported by: ZAK ESCAMILLA MD Electonically Signed: [id number]
== END 2018-12-09 09:04 | disposition home or self-care (01) ==
LOC: BICMAMMO 09:03
PROVIDERS: ATTEND Internal Medicine Hematology & Oncology
DX: C50.919 Malignant neoplasm of unspecified site of unspecified female breast (principal)
CPT/HCPCS: 77066; G0279